=== PATIENT | male | born 1960 | race Two or more races ===

== ENCOUNTER 2017-08-15 14:38 | Emergency (ER) | payer MEDICARE, OTHER ==
[~2017-08-15] VITALS: Ht 172.7 cm; Wt 102.1 kg
[~2017-08-15 14:38] MED LIST: AMLO1TAB6 PO; ASPI-630 PO; DAPA5TAB PO; ENAL10TA PO; INSU100V11 IJ; INSU100V8 SQ
[2017-08-15 14:50] VITALS: BP 142/90
[2017-08-15] MEDS ORDERED: CLIN150C14 PO (15:23)
--- NOTE | 2017-08-15 15:28 | PHYS DOC ---
Past Medical History Past Medical History: Abscess, Diabetes-Type II Past Surgical History: No Surgical History Alcohol Use: Occasionally Drug Use: None Adult General Chief Complaint Chief Complaint: ABSCESS [facility] HPI Patient is a 57 year old nail presents to the emergency department stating since last he's been having right lower leg swelling. He states that he had an abscess in which she popped and has had drainage coming from the site. He states he presents today to be placed on some antibiotics. Patient does have a history of diabetes and is uncontrolled, history of congestive heart failure. He does have significant swelling and redness noted to the leg. Patient states that the redness has actually gotten better. He states that he normally wears compression stockings however has not worn this for the last few days. Review of Systems Review of Systems Constitutional: Denies fever or chills [] Eyes: Denies change in visual acuity, redness, or eye pain [] HENT: Denies nasal congestion or sore throat [] Respiratory: Denies cough or shortness of breath [] Cardiovascular: No additional information not addressed in HPI [] GI: Denies abdominal pain, nausea, vomiting, bloody stools or diarrhea [] : Denies dysuria or hematuria [] Musculoskeletal: Denies back pain or joint pain [] Integument: Denies rash or skin lesions. Redness swelling and drainage from the right lower leg. Neurologic: Denies headache, focal weakness or sensory changes [] Endocrine: Denies polyuria or polydipsia [] Allergies Allergies Allergies Coded Allergies Type Severity Reaction Last Updated Verified No Known Drug Allergies 01/17/14 No Physical Exam Physical Exam Constitutional: Well developed, well nourished, no acute distress, non-toxic appearance. [] HENT: Normocephalic, atraumatic, bilateral external ears normal, oropharynx moist, no oral exudates, nose normal. [] Eyes: PERRLA, EOMI, conjunctiva normal, no discharge. [] Neck: Normal range of motion, no tenderness, supple, no stridor. [] Cardiovascular:Heart rate regular rhythm Lungs & Thorax: no respiratory distress noted Skin: Warm, dry, no erythema, no rash. [] Extremities: No tenderness, no cyanosis, no clubbing, ROM intact, no edema. Right lower leg with swelling redness warmth and tenderness noted. Patient does have drainage coming from the site. Peripheral pulses are 2+ cap refill brisk less than 2 seconds. Patient appears to have skin that sloughing off the lower leg. Neurologic: Alert and oriented X 3, normal motor function, normal sensory function, no focal deficits noted. [] Psychologic: Affect normal, judgement normal, mood normal. [] Current Patient Data Vital Signs Vital Signs Date Time Temp Pulse Resp B/P (MAP) Pulse Ox O2 Delivery O2 Flow Rate FiO2 08/15/17 14:50 97.6 99 20 97 Room Air 97.6 EKG EKG [] Radiology/Procedures Radiology/Procedures [] Course & Med Decision Making Course & Med Decision Making Pertinent Labs and Imaging studies reviewed. (See chart for details) Spoke with Dr. Mercer in regards to patient being admitted into the hospital. She recommends for admission into the hospital. Patient was instructed that the recommendations. Patient has requested leave AGAINST MEDICAL ADVICE. Spoke with his primary care physician in regards to him leaving he will be placed on clindamycin with the recommendations to follow-up tomorrow at 2 PM. Patient was provided discharge instructions, treatment regimens and follow-up recommendations. Patient was provided with signs and symptoms to return back to emergency department. His primary care physician is also provided information that he has a noncompliant patient. All questions and concerns been answered at patient's bedside. Dragon Disclaimer Dragon Disclaimer This electronic medical record was generated, in whole or in part, using a voice recognition dictation system. Departure Departure Impression: Primary Impression: Cellulitis of right leg Additional Impression: Left against medical advice Disposition: 01 HOME, SELF-CARE Condition: STABLE Referrals: CHRISTY HARDWICK MD (PCP) Patient Instructions: Cellulitis, [id number], Discharge Against Medical Advice Additional Instructions: You have chosen to leave against medical advise. You may return if the signs and symptoms become worse. Activity as tolerated Medication as prescribed Followup with with your primary care provider tomorrow at 2 pm Return to emergency department as needed for signs and symptoms that become worse. Scripts Clindamycin Hcl (CLINDAMYCIN HCL) 150 Mg Capsule 3 CAP PO TID for 10 Days, CAP Prov: MELLY CHAMORRO APRN 08/15/17 Problem Qualifiers MELLY CHAMORRO APRN Aug 15, 2017 15:28
[2017-08-15] MEDS ORDERED: CLINDAMYCIN 600MG PREMIX 50 ML IV ONE (16:00)
[2017-08-15] MEDS ORDERED: CLINDAMYCIN 600MG PREMIX 50 ML IV SCH (22:00)
--- NOTE | 2017-08-19 14:12 | VNOTE ---
CALL BACK NOTE CALL BACK Microbiology 08/15/17 Gram Stain - Final, Complete Attempted to contact this patient at the phone number provided by registration. Patient was placed on clindamycin at discharge which is sensitive to one of the resulted results. However he needs to be placed on Levaquin for a third result that presented. Attempted to contact the patient at the number in which states that voicemail box is not set up. This patient had left AGAINST MEDICAL ADVICE for admission. He does have a primary care physician. This information will be provided to the charge nurse for further follow-up. MELLY CHAMORRO APRN Aug 19, 2017 14:12
== END 2017-08-15 15:30 | disposition left against medical advice (07) ==
LOC: ER 14:38
DX: L03.115 Cellulitis of right lower limb (principal); E11.9 Type 2 diabetes mellitus without complications
CPT/HCPCS: 87071; 87075; 87186; 87205; 99284